=== PATIENT | male | born 1945 | race Caucasian/White ===

== ENCOUNTER 2017-04-26 05:27 | Day surgery (SDC) | payer OTHER ==
[2017-04-13 09:20] VITALS: BMI 36.0
[~2017-04-26] VITALS: Ht 160 cm; Wt 93.2 kg
[~2017-04-26 05:27] MED LIST: ASPI325T39 PO; ATOR-26 PO; CZR25 PO; FENO200C6 PO; FINA5TAB PO; GLC/500 PO; METO100T14 PO; MULT-845 PO; NIAC500T11 PO; NTRGSL/4 UT; OMEG10007 PO; TAMS0.4C38 PO
[2017-04-26] MEDS ORDERED: CIPROFLOXACIN 500 MG TAB PO SCH (06:00)
[2017-04-26] MEDS ORDERED: LACTATED RINGER'S 1000ML 1,000 ML IV SCH (06:00)
[2017-04-26 06:14] VITALS: BP 118/69; PULSE 64; TEMP 36.7; O2SAT 94; Ht 160 cm; Wt 93.2 kg
[2017-04-26] MEDS ORDERED: LIDOCAINE HCL 2% 2 ML VIAL (20MG/ML) ONE (06:55)
[2017-04-26] MEDS ORDERED: FENTANYL CITRATE INJ 50 MCG/1 ML 2 ML VIAL ONE (06:55)
[2017-04-26] MEDS ORDERED: MIDAZOLAM HCL 1 MG/ML 2ML VIAL ONE (06:55)
[2017-04-26] MEDS ORDERED: ONDANSETRON INJ 2 MG/ML 2 ML VIAL ONE (06:55)
[2017-04-26] MEDS ORDERED: PROPOFOL IV EMULSION 10 MG/ML 20 ML VIAL IV ONE (06:55)
--- NOTE | 2017-04-26 07:10 | History & Physical Bridge Note ---
H&P Re-Evaluation Bridge Note: I have examined the patient, reviewed the History & Physical and in the interval since the performance of the History & Physical I have noted the following changes of clinical significance: No changes noted
[2017-04-26] MEDS ORDERED: MEPERIDINE HCL 25 MG/ML CARP IV PRN (07:15)
[2017-04-26] MEDS ORDERED: ATROPINE SULFATE 0.1 MG/ML 5ML SYR IV PRN (07:15)
[2017-04-26] MEDS ORDERED: ONDANSETRON INJ 2 MG/ML 2 ML VIAL IV PRN (07:15)
[2017-04-26] MEDS ORDERED: EpHEDrine SULFATE INJ 50 MG/ML AMP IV PRN (07:15)
[2017-04-26] MEDS ORDERED: LABETALOL HCL IV 5 MG/ML 20ML IV PRN (07:15)
[2017-04-26] MEDS ORDERED: NALOXONE HCL 0.4 MG/1 ML VIAL/CARP IV PRN (07:15)
[2017-04-26] MEDS ORDERED: FLUMAZENIL 0.1 MG/1 ML 10 ML VIAL IV PRN (07:15)
[2017-04-26] MEDS ORDERED: PHENYLEPHRINE 100MCG/ML 5ML SYR IV PRN (07:15)
[2017-04-26] MEDS ORDERED: FENTANYL CITRATE INJ 50 MCG/1 ML 2 ML VIAL IV PRN (07:15)
[2017-04-26] MEDS ORDERED: HYDROmorphone INJ 2 MG/ML SYR/VIAL IV PRN (07:15)
[2017-04-26] MEDS ORDERED: EpHEDrine SULFATE 50MG/5ML SYR ONE (07:27)
[2017-04-26] MEDS ORDERED: PHENYLEPHRINE 100MCG/ML 5ML SYR ONE (07:27)
[2017-04-26] MEDS ORDERED: BELLADONNA/OPIUM SUPP 60 MG SUPP PR ONE ×2 (07:45→08:36)
--- NOTE | 2017-04-26 08:55 | [facility] Operative Report ---
Operative Report Operative Date Apr 26, 2017. Pre-Operative Diagnosis Bladder Stone, Benign Prostatic Hyperplasia with Lower Urinary Tract Symptoms, Gross Hematuria Post-Operative Diagnosis Bladder Stone, Benign Prostatic Hyperplasia with Lower Urinary Tract Symptoms, Gross Hematuria Procedure(s) Performed Cystoscopy, Laser Lithotripsy of large Bladder Stone, Transuretheral Resection Prostate Surgeon Dr. Das Tube Worker Surgeon(s) none Estimated Blood Loss 100 cc Findings 40mm crystalline woodson kidney stone, trabeculated bladder, beefy prostate Specimens A: Bladder stone gross only B: Prostate Chips Drains 22 fr 3-way hercules Anesthesia LMA Complication(s) None Disposition Recovery Room / PACU Indications gross hematuria and bladder stone with bph Description of Procedure Patient was given general LMA anesthesia and placed in lithotomy position. His genitals were prepped and draped in sterile fashion. Time out held with team. I placed a 22 fr rigid cystoscope to bladder. The urethra is unremarkable. The prostate is trilobar occlusive and bleeds easily. There is a 40mm crystalline woodson stone free floating in bladder. I used a 1000 micron holmium laser to fragment the stones into pieces. I rinsed pieces out via sheath. I then placed a 26 fr resectoscope into bladder. I used bipolar system with the thick loop to resect the prostate. He bleeds briskly. I resected enough to open the channel but did not go deeply. He bleeds briskly with nearly every swipe. I rinsed prostate chips and a few remaining bladder stone fragments out of bladder. Both uos are spared and efflux freely. I used careful cautery to obtain good hemostasis. I placed a 22 fr 3-way hercules and began CBI with saline. I placed a belladonna and opium suppository for post-op pain. He transferred to recovery under my escort, in stable condition. Plan: Home today Pyridium for dysuria x 3 days starting monday void trial Monday am. ASA 3 clean contaminated case cipro 500mg oral antibiotic in pre-op I attest to the content of the Intraoperative Record and any orders documented therein. Any exceptions are noted below.
[2017-04-26] MEDS ORDERED: PHEN-775 PO (08:56)
--- NOTE | 2017-04-26 09:00 | Discharge Instructions ---
Discharge Instructions Date of Service Apr 26, 2017. Admission Reason for Admission: Bladder Stone, BPH Discharge Discharge Diagnosis / Problem: bladder stone and bph Discharge Goals Goal(s): Improve function, Improve disease control Activity Recommendations Activity Limitations: per Instructions/Follow-up section Lifting Limitations: no more than 25 pounds Exercise/Sports Limitations: none Shower/Bathe: no limitations Driving or Machine Use: resume 1 day after discharge keep activity light with no vigorous exercise or heavy lifting for 4 weeks. . Instructions / Follow-Up Instructions / Follow-Up stop aspirin and fish oil for one week remove hercules catheter Monday morning and call office by noon ([phone]) with your outcome by noon. If unable to pass urine come to office at [facility] Diet Patient's current hospital diet: Discharge Diet Recommended Diet: AHA Diet (Heart Healthy) Fluid Restriction: None Procedures Procedures Performed: Cystoscopy, Laser Lithotripsy of large Bladder Stone, Transuretheral Resection Prostate Pending Studies Studies pending at discharge: yes List of pending studies: path report on prostate chips Medical Emergencies . Who to Call and When: Medical Emergencies: If at any time you feel your situation is an emergency, please call 911 immediately. . Non-Emergent Contact Non-Emergency issues call your: Urologist ([phone]) Call Non-Emergent contact if: temperature is above 100.5, your pain is not controlled . . "Provider Documentation" section prepared by Hafsa Das. . VTE Core Measure Inpt VTE Proph given/why not?: SCD's
--- NOTE | 2017-04-26 09:21 | Anesthesiology Progress Note ---
Anesthesia Post Op Note Date & Time Apr 26, 2017 at 09:21 Vital Signs Pain Intensity: 0 Vital Signs Past 12 Hours Date Time Temp Pulse Resp B/P (MAP) Pulse Ox O2 Delivery O2 Flow Rate FiO2 04/26/17 09:13 123/67 04/26/17 09:10 72 17 82/66 94 Room Air 04/26/17 09:00 75 20 107/56 97 Oxymask 10 04/26/17 08:50 75 18 118/82 96 Oxymask 10 04/26/17 08:43 36.2 78 16 128/69 98 Oxymask 10 04/26/17 06:14 36.7 64 18 118/69 (85) 94 Room Air Notes Mental Status: alert / awake / arousable, participated in evaluation Pt Amnestic to Procedure: Yes Nausea / Vomiting: adequately controlled Pain: adequately controlled Airway Patency, RR, SpO2: stable & adequate BP & HR: stable & adequate Hydration State: stable & adequate Anesthetic Complications: no major complications apparent
[2017-04-26 09:35] VITALS: BP 120/64; TEMP 36.5; O2SAT 92
[2017-04-26 10:05] VITALS: BP 119/61; PULSE 68; TEMP 36.8; O2SAT 92
[2017-04-26 10:35] VITALS: BP 114/67; PULSE 72; O2SAT 92
== END 2017-04-26 10:40 | disposition home or self-care (01) ==
LOC: C.ACU 05:27
PROVIDERS: ATTEND Urology
DX: N21.0 Calculus in bladder (principal); N40.1 Benign prostatic hyperplasia with lower urinary tract symptoms; R31.0 Gross hematuria; I25.10 Atherosclerotic heart disease of native coronary artery without angina pectoris; E11.22 Type 2 diabetes mellitus with diabetic chronic kidney disease; I12.9 Hypertensive chronic kidney disease with stage 1 through stage 4 chronic kidney disease, or unspecified chronic kidney disease; N18.3 Chronic kidney disease, stage 3 (moderate); E78.5 Hyperlipidemia, unspecified; E88.81 Metabolic syndrome and other insulin resistance; Z72.0 Tobacco use; Q61.02 Congenital multiple renal cysts; Z79.82 Long term (current) use of aspirin; Z79.84 Long term (current) use of oral hypoglycemic drugs; Z79.899 Other long term (current) drug therapy